=== PATIENT | female | born 1975 | race Caucasian/White ===

== ENCOUNTER 2016-09-26 13:08 | Emergency (ER) | payer MEDICAID, SELFPAY ==
[2016-09-26] MEDS ORDERED: Clindamycin 150 MG CAP ONE (14:19)
--- NOTE | 2016-09-26 14:29 | RAD ---
PA AND LATERAL CHEST: History: Dyspnea. FINDINGS: The heart size is borderline. The lungs are expanded without focal areas of consolidation, pneumotho rax, jeanette pulmonary edema or pleural effusions. IMPRESSION: No acute process. POS: [facility]
== END 2016-09-26 14:25 | disposition home or self-care (01) ==
LOC: MADERS 13:08
DX: J20.9 Acute bronchitis, unspecified (principal); E11.9 Type 2 diabetes mellitus without complications; I10 Essential (primary) hypertension; J45.909 Unspecified asthma, uncomplicated; E66.9 Obesity, unspecified; E24.9 Cushing's syndrome, unspecified; Z79.84 Long term (current) use of oral hypoglycemic drugs; Z79.899 Other long term (current) drug therapy
CPT/HCPCS: 36416; 71020

== ENCOUNTER 2016-10-20 16:52 | Outpatient (CLI) | payer MEDICAID, SELFPAY ==
--- NOTE | 2016-10-20 19:39 | RAD ---
LEFT HIP RADIOGRAPHS TWO VIEWS 10/20/16 PROVIDED CLINICAL HISTORY: Left hip pain. FINDINGS: Evaluation is limited by patient body habitus and patient positioning. There is no evidence for disp laced fracture. Left hip joint space appears preserved. Alignment appears anatomic. IMPRESSION: Limited study without evidence for an acute osseous abnormality or significant arthropathy. POS: [facility]
--- NOTE | 2016-10-20 19:41 | RAD ---
TWO VIEWS OF THE RIGHT HIP 10/20/16 PROVIDED CLINICAL HISTORY: Right hip pain. FINDINGS: Evaluation is limited by patient body habitus. There is no evidence for displaced fracture. Right hi p joint space appears preserved. Alignment appears anatomic. IMPRESSION: Limited exam without evidence for an acute osseous abnormality or significant arthropathy. POS: [facility]
--- NOTE | 2016-10-20 20:08 | RAD ---
LUMBAR SPINE RADIOGRAPHS THREE VIEWS 10/20/16 PROVIDED CLINICAL HISTORY: Back pain. FINDINGS: Evaluation is limited by patient body habitus. Five nonribbearing lumbar type vertebral bodies are n oted. Lumbar alignment appears normal. Vertebral body heights appear preserved. Lower lumbar facet d egenerative changes are seen. Intervertebral disc space heights appear preserved. IMPRESSION: Lower lumbar spine facet arthritis. POS: [facility]
== END 2016-10-20 16:53 | disposition home or self-care (01) ==
LOC: MADEKG 16:52
PROVIDERS: ATTEND Family Medicine
DX: M54.42 Lumbago with sciatica, left side (principal); M47.816 Spondylosis without myelopathy or radiculopathy, lumbar region
CPT/HCPCS: 72100

== ENCOUNTER 2017-07-02 22:14 | Emergency (ER) | payer MEDICAID ==
[2017-07-02] MEDS ORDERED: diphenhydrAMINE 25 MG CAP ONE (22:44)
[2017-07-02] MEDS ORDERED: HYDROcodone/Acetaminophen 10/325 mg Tablet ONE (22:44)
[2017-07-02 22:46] LABS: Bilirubin Negative (Negative); Blood, Urine Negative (Negative); Glucose, Urine (Dipstick) Negative (Negative); Leukocyte Trace (Negative); Nitrite Negative (Negative); Protein, Urine (Dipstick) Negative (Neg-Trace); Urobilinogen 0.2 mg/dL (0.2-1.0); pH, Urine 5.5 (5.0-9.0)
[2017-07-02 22:55] LABS: Clarity Hazy (Clear); RBC/HPF 0-3 HPF (0-3); Specific Gravity, Urine 1.005 (1.005-1.030)
[2017-07-02 22:56] LABS: Bacteria/HPF 2+ HPF (None Seen); WBC/HPF 21-50 HPF (0-3)
[2017-07-02] MEDS ORDERED: Ciprofloxacin 500 MG TAB ONE (23:17)
[2017-07-02] MEDS ORDERED: Phenazopyridine HCl 97.5 MG TABLET ONE (23:17)
== END 2017-07-02 23:25 | disposition home or self-care (01) ==
LOC: MADERS 22:14
DX: N39.0 Urinary tract infection, site not specified (principal); E11.9 Type 2 diabetes mellitus without complications; E03.9 Hypothyroidism, unspecified; I10 Essential (primary) hypertension; J45.909 Unspecified asthma, uncomplicated; E66.9 Obesity, unspecified; F31.9 Bipolar disorder, unspecified; Z79.84 Long term (current) use of oral hypoglycemic drugs; Z79.899 Other long term (current) drug therapy
CPT/HCPCS: 81001; 87086; 99283

== ENCOUNTER 2017-11-21 21:41 | Emergency (ER) | payer OTHER ==
[2017-11-21] MEDS ORDERED: Lorazepam 2 MG/ML VIAL ONE (22:00)
== END 2017-11-21 23:54 | disposition home or self-care (01) ==
LOC: MADERS 21:41
DX: F41.9 Anxiety disorder, unspecified (principal); I10 Essential (primary) hypertension; E11.9 Type 2 diabetes mellitus without complications; J45.909 Unspecified asthma, uncomplicated; E66.9 Obesity, unspecified; F31.9 Bipolar disorder, unspecified; Z79.899 Other long term (current) drug therapy; Z79.84 Long term (current) use of oral hypoglycemic drugs
CPT/HCPCS: 93005; 96372; J2060

== ENCOUNTER 2017-12-09 15:40 | Emergency (ER) | payer OTHER ==
[2017-12-09 16:54] LABS: #Basophils 0.1 thou/uL (0.0-0.2); #Eosinphils 0.3 thou/uL (0.0-0.7); #Lymphocytes 1.6 thou/uL (1.20-3.40); #Monocytes 0.5 thou/uL (0.11-0.59); #Neutrophils 6.2 thou/uL (1.40-6.50); %Basophils 0.8 % (0.0-1.0); %Eosinophils 3.2 % (0.0-10.0); %Lymphocytes 18.4 % (21.0-51.0); %Monocytes 5.6 % (0.0-10.0); Hemoglobin 13.6 g/dL (12.0-16.0); Mean Corpuscular HGB CONC 30.6 g/dL (32.0-36.0); Mean Corpuscular Volume 91.5 fL (78.0-98.0); Mean Platelet Volume 10.9 fL (7.4-10.4); Platelet Count 222 thou/uL (130-400); Red Blood Cell (RBC) Count 4.87 mill/uL (4.20-5.40); White Blood Cell (WBC) Count 8.6 thou/uL (4.8-10.8)
[2017-12-09 17:00] LABS: ALT (SGPT) 18 U/L (8-55); AST (SGOT) 16 U/L (5-34); Albumin 4.4 g/dL (3.5-5.0); Alkaline Phosphatase 94 U/L (40-150); Anion Gap 15 mmol/L (10-20); BUN (Urea Nitrogen) 14 mg/dL (7.0-18.7); Bilirubin, Total 0.3 mg/dL (0.2-1.2); Calc. Creatinine Clearance 0 mL/min (70-130); Calcium 9.9 mg/dL (7.8-10.44); Carbon Dioxide 29 mmol/L (22-29); Chloride 100 mmol/L (98-107); Estimated GFR-MDRD 83; Globulin 3.9 g/dL (2.4-3.5); Glucose 82 mg/dL (70-105); Lipase 18 U/L (8-78); Potassium 4.4 mmol/L (3.5-5.1); Protein, Total 8.3 g/dL (6.0-8.3); Sodium 140 mmol/L (136-145)
[2017-12-09] MEDS ORDERED: Metoclopramide HCl 10 MG/2 ML VIAL ONE (17:07)
--- NOTE | 2017-12-09 17:12 | RAD ---
PORTABLE CHEST: Date: 12/09/17 HISTORY: Injury. Chest pain. COMPARISON: 09/26/16. FINDINGS: Exam is degraded due to soft tissue attenuation. The lungs appear clear. Heart size upper normal and stable. Visualized bony thorax appears intact. IMPRESSION: No acute finding or interval change noted. POS: [facility]
[2017-12-09 17:42] LABS: BHCG - Serum Negative (NEGATIVE); Pregs Control Background? CLEAR/WHITE (CLR/WHITE); Pregs Control Bar Appear? YES (CONTROL BAR)
[2017-12-09] MEDS ORDERED: Fentanyl 100 MCG/2 ML VIAL ONE (18:12)
== END 2017-12-09 18:51 | disposition home or self-care (01) ==
LOC: MADERS 15:40
DX: B34.9 Viral infection, unspecified (principal); E11.9 Type 2 diabetes mellitus without complications; I10 Essential (primary) hypertension; J45.909 Unspecified asthma, uncomplicated; F31.9 Bipolar disorder, unspecified; Z79.899 Other long term (current) drug therapy
CPT/HCPCS: 71045; 80053; 83690; 84703; 85025; 87804; 93005; 96374; 96375; J2765; J3010

== ENCOUNTER 2018-01-11 08:08 | Emergency (ER) | payer OTHER ==
[2018-01-11] MEDS ORDERED: HYDROcodone/Acetaminophen 10/325 mg Tablet ONE (08:24)
--- NOTE | 2018-01-11 09:10 | RAD ---
THREE VIEWS LEFT FOOT: INDICATION: Injury, pain. FINDINGS: The digits are held in flexion which does limit evaluation. Limited evaluation of the Lisfranc joint due to positioning of the images. There is prominent soft tissue swelling. There is mild enthesoph yte formation of the calcaneus. Scattered osteophytes are seen. IMPRESSION: 1. No acute osseous abnormality of the left foot. There is limited evaluation on the basis of align ment. If there is high clinical suspicion, recommend short-term followup for continued assessment. 2. Soft tissue prominence. Correlate clinically. POS: [facility]
== END 2018-01-11 09:10 | disposition home or self-care (01) ==
LOC: MADERS 08:08
DX: S90.32XA Contusion of left foot, initial encounter (principal); E11.9 Type 2 diabetes mellitus without complications; I10 Essential (primary) hypertension; E66.9 Obesity, unspecified; J45.909 Unspecified asthma, uncomplicated; F31.9 Bipolar disorder, unspecified; Z79.899 Other long term (current) drug therapy; W55.12XA Struck by horse, initial encounter

== ENCOUNTER 2018-02-02 16:07 | Emergency (ER) | payer OTHER ==
[2018-02-02] MEDS ORDERED: predniSONE 20 MG TAB ONE (17:23)
--- NOTE | 2018-02-02 18:34 | RAD ---
CHEST TWO VIEW: 02/02/18 HISTORY: Cough. Hypertension. COMPARISON: Chest radiograph 12/09/17. FINDINGS: Pulmonary arteries are dilated. Lungs are without focal confluent air space consolidation or pneumoth orax or effusion. Mild pulmonary venous congestion. IMPRESSION: 1. Mild pulmonary venous congestion. 2. Dilated pulmonary arteries suggesting pulmonary arterial hypertension. POS: [facility]
== END 2018-02-02 18:05 | disposition home or self-care (01) ==
LOC: MADERS 16:07
DX: J20.9 Acute bronchitis, unspecified (principal); E11.9 Type 2 diabetes mellitus without complications; I10 Essential (primary) hypertension; E66.9 Obesity, unspecified; J45.909 Unspecified asthma, uncomplicated; F31.9 Bipolar disorder, unspecified
CPT/HCPCS: 71046; 93005; 94640; J7506; J7620

== ENCOUNTER 2018-02-22 19:53 | Emergency (ER) | payer OTHER ==
[~2018-02-22 19:53] MED LIST: Iopamidol 370 76% 100 ML VIAL ONE
[2018-02-22] MEDS ORDERED: Sodium Chloride 0.9% 1,000 ML ONE (20:23)
[2018-02-22] MEDS ORDERED: Morphine 4 MG/ML VIAL ONE (20:23)
[2018-02-22] MEDS ORDERED: Ondansetron PF 4 MG/2 ML Vial ONE (20:23)
[2018-02-22 20:56] LABS: #Basophils 0.1 thou/uL (0.0-0.2); #Eosinphils 0.3 thou/uL (0.0-0.7); #Lymphocytes 1.6 thou/uL (1.20-3.40); #Monocytes 0.4 thou/uL (0.11-0.59); %Basophils 0.7 % (0.0-1.0); %Lymphocytes 16.6 % (21.0-51.0); %Monocytes 4.4 % (0.0-10.0); %Neutrophils 75.4 % (42.0-75.0); Hemoglobin 13.1 g/dL (12.0-16.0); Mean Corpuscular HGB CONC 30.2 g/dL (32.0-36.0); Mean Corpuscular Hemoglobin 27.3 pg (27.0-31.0); Mean Corpuscular Volume 90.4 fL (78.0-98.0); Mean Platelet Volume 10.1 fL (7.4-10.4); Platelet Count 223 thou/uL (130-400); RBC Distribution Width 14.9 % (11.5-14.5); Red Blood Cell (RBC) Count 4.78 mill/uL (4.20-5.40); White Blood Cell (WBC) Count 9.3 thou/uL (4.8-10.8)
[2018-02-22 21:18] LABS: ALT (SGPT) 15 U/L (8-55); AST (SGOT) 20 U/L (5-34); Albumin 4.2 g/dL (3.5-5.0); Alkaline Phosphatase 85 U/L (40-150); Anion Gap 19 mmol/L (10-20); BUN (Urea Nitrogen) 22 mg/dL (7.0-18.7); Bilirubin, Total 0.2 mg/dL (0.2-1.2); Calc. Creatinine Clearance 0 mL/min (70-130); Calcium 9.6 mg/dL (7.8-10.44); Carbon Dioxide 24 mmol/L (22-29); Chloride 102 mmol/L (98-107); Estimated GFR-MDRD 72; Globulin 3.9 g/dL (2.4-3.5); Glucose 123 mg/dL (70-105); Lipase 23 U/L (8-78); Potassium 4.2 mmol/L (3.5-5.1); Protein, Total 8.1 g/dL (6.0-8.3); Sodium 141 mmol/L (136-145)
--- NOTE | 2018-02-22 22:04 | CT ---
CT ABDOMEN AND PELVIS WITH IV CONTRAST: 02/22/18 PROVIDED CLINICAL HISTORY: Abdominal pain. FINDINGS: No comparisons. The visualized lung bases are free of significant opacity. The liver, spleen, pancreas, kidneys, and adrenal glands demonstrate an unremarkable CT appearance. There is no bowel dilatation, inflammatory fat stranding, free fluid or free air apparent. Postoperat ramón changes are noted associated with the anterior abdominal wall inferiorly. The osseous structures demonstrate no concerning lytic or blastic lesions. IMPRESSION: No evidence for an acute process. POS: [facility]
== END 2018-02-22 21:40 | disposition home or self-care (01) ==
LOC: MADERS 19:53
DX: R10.9 Unspecified abdominal pain (principal); E11.9 Type 2 diabetes mellitus without complications; I10 Essential (primary) hypertension; E66.9 Obesity, unspecified; J45.909 Unspecified asthma, uncomplicated; F31.9 Bipolar disorder, unspecified; Z79.899 Other long term (current) drug therapy; Z79.51 Long term (current) use of inhaled steroids
CPT/HCPCS: 74177; 83690; 85025; 96361; 96374; 96375; J2270; J2405; J7050

== ENCOUNTER 2018-03-01 11:47 | Emergency (ER) | payer OTHER ==
[~2018-03-01 11:47] MED LIST changes: +Donnatal Elixir 16.2 MG/5 ML UDCUP ONE; -Iopamidol 370 76% 100 ML VIAL ONE
[2018-03-01 12:32] LABS: #Basophils 0.1 thou/uL (0.0-0.2); #Eosinphils 0.2 thou/uL (0.0-0.7); #Lymphocytes 1.2 thou/uL (1.20-3.40); #Monocytes 0.5 thou/uL (0.11-0.59); %Basophils 0.9 % (0.0-1.0); %Eosinophils 2.4 % (0.0-10.0); %Lymphocytes 15.3 % (21.0-51.0); %Monocytes 6.1 % (0.0-10.0); %Neutrophils 75.3 % (42.0-75.0); Mean Corpuscular HGB CONC 30.9 g/dL (32.0-36.0); Mean Corpuscular Hemoglobin 28.3 pg (27.0-31.0); Mean Corpuscular Volume 91.6 fL (78.0-98.0); Mean Platelet Volume 9.4 fL (7.4-10.4); Platelet Count 179 thou/uL (130-400); Red Blood Cell (RBC) Count 4.58 mill/uL (4.20-5.40); White Blood Cell (WBC) Count 7.9 thou/uL (4.8-10.8)
[2018-03-01 12:47] LABS: ALT (SGPT) 18 U/L (8-55); AST (SGOT) 22 U/L (5-34); Albumin 4.2 g/dL (3.5-5.0); Alkaline Phosphatase 82 U/L (40-150); Anion Gap 14 mmol/L (10-20); BUN (Urea Nitrogen) 20 mg/dL (7.0-18.7); Bilirubin, Total 0.3 mg/dL (0.2-1.2); Calc. Creatinine Clearance 0 mL/min (70-130); Calcium 9.4 mg/dL (7.8-10.44); Carbon Dioxide 28 mmol/L (22-29); Chloride 101 mmol/L (98-107); Estimated GFR-MDRD 83; Globulin 3.3 g/dL (2.4-3.5); Glucose 102 mg/dL (70-105); Lipase 22 U/L (8-78); Potassium 4.1 mmol/L (3.5-5.1); Protein, Total 7.5 g/dL (6.0-8.3); Sodium 139 mmol/L (136-145)
[2018-03-01 12:49] LABS: Bilirubin Negative (Negative); Blood, Urine Negative (Negative); Clarity Clear (Clear); Glucose, Urine (Dipstick) Negative (Negative); Leukocyte Negative (Negative); Nitrite Negative (Negative); Protein, Urine (Dipstick) Negative (Neg-Trace); Urobilinogen 0.2 mg/dL (0.2-1.0)
[2018-03-01] MEDS ORDERED: Donnatal Elixir 16.2 MG/5 ML UDCUP ONE (12:57)
[2018-03-01] MEDS ORDERED: Lidocaine Viscous Sol 2% 15 ml UD Cup ONE (12:58)
[2018-03-01] MEDS ORDERED: Mag-Al Plus 1200 MG/1200 MG/120 MG/30 ML UDCUP ONE (12:58)
[2018-03-01] MEDS ORDERED: Prochlorperazine 10 MG/2 ML VIAL ONE (12:59)
--- NOTE | 2018-03-01 13:46 | RAD ---
ONE VIEW CHEST TWO VIEWS ABDOMEN: History: Pain. Comparison: None. FINDINGS: CHEST ONE VIEW: Normal cardiac silhouette. The pulmonary vessels and hilum are normal. Costophrenic angles are clear. No masses or consolidation or pneumothorax. No acute osseous abnormality. There is a mild S-shaped s coliotic curvature of the thoracic and lumbar spine. The thoracic spine has a rightward curvature. Gabriella mbar spine has a leftward curvature. ABDOMEN TWO VIEWS: Nonspecific bowel gas pattern. No suspicious densities in the abdomen or pelvis. There is evidence of previous hernia repair in the pelvis. No differential air fluid levels. No pneumoperitoneum. IMPRESSION: 1. No acute cardiopulmonary process. 2. Nonspecific bowel gas pattern. POS: [facility]
== END 2018-03-01 13:52 | disposition home or self-care (01) ==
LOC: MADERS 11:47
DX: K21.9 Gastro-esophageal reflux disease without esophagitis (principal); R10.83 Colic; E11.9 Type 2 diabetes mellitus without complications; I10 Essential (primary) hypertension; E66.9 Obesity, unspecified; J45.909 Unspecified asthma, uncomplicated; Z79.899 Other long term (current) drug therapy; Z79.84 Long term (current) use of oral hypoglycemic drugs; Z79.51 Long term (current) use of inhaled steroids
CPT/HCPCS: 36415; 74022; 80053; 81003; 83605; 83690; 85025; 93005; 96372; J0780

== ENCOUNTER 2018-03-27 20:28 | Emergency (ER) | payer OTHER ==
[2018-03-27] MEDS ORDERED: Ketorolac Tromethamine 60 MG/2 ML VIAL ONE (20:59)
--- NOTE | 2018-03-27 21:54 | RAD ---
RIGHT FEMUR TWO VIEWS: HISTORY: Fall. FINDINGS: There are moderate arthritic changes of the knee, and there appears to be some joint effusion present . I do not see any signs of fracture. IMPRESSION: No evidence of fracture. POS: [facility]
--- NOTE | 2018-03-27 22:32 | RAD ---
RIGHT HIP TWO VIEWS: HISTORY: Right hip injury. FINDINGS: I do not see any signs of fracture or dislocation. IMPRESSION: Negative right hip. POS: [facility]
--- NOTE | 2018-03-27 22:33 | RAD ---
RIGHT TIBIA AND FIBULA TWO VIEWS: HISTORY: Ground level fall with tibia and fibula pain. FINDINGS: There is a joint effusion present and some moderate arthritic changes of the knee. I do not see any signs of fracture or dislocation. IMPRESSION: Marked arthritic changes of the knee with moderate joint effusion. No acute injury. POS: [facility]
--- NOTE | 2018-03-27 22:34 | RAD ---
RIGHT KNEE FOUR VIEWS: HISTORY: Knee injury. FINDINGS: There are marked arthritic changes of the knee. There is severe medial compartment narrowing. There is also prominent spur formation of the patellofemoral and lateral compartments. There is a moderat e joint effusion, but I do not see any definite signs of a fracture. IMPRESSION: Severe arthritic changes of the knee with moderate joint effusion. POS: [facility]
== END 2018-03-27 22:40 | disposition home or self-care (01) ==
LOC: MADERS 20:28
DX: S83.91XA Sprain of unspecified site of right knee, initial encounter (principal); S73.101A Unspecified sprain of right hip, initial encounter; S80.11XA Contusion of right lower leg, initial encounter; S70.11XA Contusion of right thigh, initial encounter; E66.9 Obesity, unspecified; I10 Essential (primary) hypertension; J45.909 Unspecified asthma, uncomplicated; F31.9 Bipolar disorder, unspecified; E11.9 Type 2 diabetes mellitus without complications; Z79.899 Other long term (current) drug therapy; W18.30XA Fall on same level, unspecified, initial encounter
CPT/HCPCS: 96372; J1885

== ENCOUNTER 2018-06-02 15:49 | Emergency (ER) | payer OTHER ==
[2018-06-02] MEDS ORDERED: predniSONE 20 MG TAB ONE (16:43)
--- NOTE | 2018-06-02 16:47 | RAD ---
EXAM: Two views chest PROVIDED CLINICAL HISTORY: Cough COMPARISON: 04/22/2018 FINDINGS: Cardiac silhouette is magnified by projection but overall stable in size. Pulmonary vasculature is wi thin normal limits for the portable technique. The lungs are clear. The osseous structures have a normal appearance. IMPRESSION: No acute cardiopulmonary process.
--- NOTE | 2018-06-02 18:23 | CT ---
CT BRAIN: 06/02/18 HISTORY: Right sided paresthesia. Noncontrast enhanced CT images of the brain obtained. The brain is unremarkable. No evidence of intr acranial masses, hemorrhages, strokes, or contusions seen. Ventricles are of normal size. IMPRESSION: Normal CT brain. POS: [facility]
== END 2018-06-02 18:23 | disposition home or self-care (01) ==
LOC: MADERS 15:49
DX: J45.909 Unspecified asthma, uncomplicated (principal); R20.2 Paresthesia of skin; E11.9 Type 2 diabetes mellitus without complications; I10 Essential (primary) hypertension; E66.9 Obesity, unspecified; F31.9 Bipolar disorder, unspecified; Z79.51 Long term (current) use of inhaled steroids; Z79.899 Other long term (current) drug therapy
CPT/HCPCS: 70450; 71046; 94640; J7512; J7620

== ENCOUNTER 2018-07-10 14:21 | Emergency (ER) | payer OTHER ==
--- NOTE | 2018-07-10 15:20 | RAD ---
PA AND LATERAL VIEWS CHEST: HISTORY: Cough. FINDINGS: Comparison is made with the exam of 06/21/2018. The heart size is normal. The lungs are expanded without focal areas of consolidation, pneumothorace s, or pleural effusions. No acute osseous abnormalities are seen. IMPRESSION: No acute process. POS: [facility]
[2018-07-10] MEDS ORDERED: Dexamethasone 4 MG TAB ONE (15:38)
== END 2018-07-10 15:41 | disposition home or self-care (01) ==
LOC: MADERS 14:21
DX: J20.9 Acute bronchitis, unspecified (principal); E11.9 Type 2 diabetes mellitus without complications; I10 Essential (primary) hypertension; E66.9 Obesity, unspecified; J45.909 Unspecified asthma, uncomplicated; F31.9 Bipolar disorder, unspecified; Z79.899 Other long term (current) drug therapy; Z79.51 Long term (current) use of inhaled steroids
CPT/HCPCS: 71046; J8540

== ENCOUNTER 2018-08-04 20:42 | Emergency (ER) | payer OTHER ==
[2018-08-04] MEDS ORDERED: predniSONE 20 MG TAB ONE (21:04)
--- NOTE | 2018-08-04 21:27 | RAD ---
XR Chest Pa Lat STANDARD History: Cough Comparison: Radiograph July 10, 2018 Findings: Heart size mildly enlarged. Pulmonary arteries are dilated. Mild dextro scoliosis. No pneumothorax or significant effusion no acute osseous abnormality. Impression: 1. Mild cardiomegaly. 2. Dilated pulmonary arteries suggesting pulmonary arterial hypertension.
== END 2018-08-04 22:29 | disposition home or self-care (01) ==
LOC: MADERS 20:42
DX: J20.9 Acute bronchitis, unspecified (principal); E11.9 Type 2 diabetes mellitus without complications; I10 Essential (primary) hypertension; E66.9 Obesity, unspecified; J45.909 Unspecified asthma, uncomplicated; G47.30 Sleep apnea, unspecified; F31.9 Bipolar disorder, unspecified; Z79.51 Long term (current) use of inhaled steroids; Z79.899 Other long term (current) drug therapy
CPT/HCPCS: 71046; J7512; J7620

== ENCOUNTER 2018-09-07 13:19 | Emergency (ER) | payer OTHER | END 2018-09-07 13:45 | disposition home or self-care (01) | LOC: MADERS 13:19 | DX: J20.9 Acute bronchitis, unspecified (principal); Z79.51 Long term (current) use of inhaled steroids; Z79.899 Other long term (current) drug therapy | CPT/HCPCS: 99282 ==

== ENCOUNTER 2018-09-20 23:08 | Emergency (ER) | payer OTHER ==
--- NOTE | 2018-09-20 23:36 | RAD ---
2 views chest: 09/20/2018 COMPARISON: 08/04/2018 HISTORY: Difficulty breathing FINDINGS: Lungs are clear. Heart and mediastinal contours are grossly unremarkable. IMPRESSION: No acute findings.
== END 2018-09-20 23:47 | disposition home or self-care (01) ==
LOC: MADERS 23:08
DX: R07.89 Other chest pain (principal); I10 Essential (primary) hypertension; J45.909 Unspecified asthma, uncomplicated; Z79.899 Other long term (current) drug therapy; Z79.51 Long term (current) use of inhaled steroids
CPT/HCPCS: 71046

== ENCOUNTER 2018-09-29 14:09 | Emergency (ER) | payer OTHER | END 2018-09-29 15:00 | disposition home or self-care (01) | LOC: MADERS 14:09 | DX: T16.2XXA Foreign body in left ear, initial encounter (principal); I10 Essential (primary) hypertension; J45.909 Unspecified asthma, uncomplicated; F41.9 Anxiety disorder, unspecified; F32.9 Major depressive disorder, single episode, unspecified; Z79.51 Long term (current) use of inhaled steroids; Z79.899 Other long term (current) drug therapy | CPT/HCPCS: 69200 ==

== ENCOUNTER 2018-12-06 11:40 | Outpatient (CLI) | payer OTHER ==
[2018-12-06 12:22] LABS: #Eosinphils 0.1 thou/uL (0.0-0.7); #Lymphocytes 1.1 thou/uL (1.20-3.40); #Monocytes 0.3 thou/uL (0.11-0.59); #Neutrophils 3.8 thou/uL (1.40-6.50); %Basophils 0.7 % (0.0-1.0); %Eosinophils 2.7 % (0.0-10.0); %Lymphocytes 20.4 % (21.0-51.0); %Monocytes 5.9 % (0.0-10.0); %Neutrophils 70.4 % (42.0-75.0); Hemoglobin 12.1 g/dL (12.0-16.0); Mean Corpuscular HGB CONC 30.6 g/dL (32.0-36.0); Mean Corpuscular Hemoglobin 26.6 pg (27.0-31.0); Mean Platelet Volume 8.7 fL (7.4-10.4); Platelet Count 163 thou/uL (130-400); RBC Distribution Width 14.9 % (11.5-14.5); Red Blood Cell (RBC) Count 4.55 mill/uL (4.20-5.40); White Blood Cell (WBC) Count 5.4 thou/uL (4.8-10.8)
[2018-12-06 12:45] LABS: ALT (SGPT) 10 U/L (8-55); AST (SGOT) 13 U/L (5-34); Albumin 4.2 g/dL (3.5-5.0); Alkaline Phosphatase 82 U/L (40-110); Anion Gap 12 mmol/L (10-20); BUN (Urea Nitrogen) 9 mg/dL (7.0-18.7); Bilirubin, Total 0.3 mg/dL (0.2-1.2); Calc. Creatinine Clearance 0 mL/min (70-130); Calcium 9.3 mg/dL (7.8-10.44); Carbon Dioxide 29 mmol/L (22-29); Chloride 102 mmol/L (98-107); Estimated GFR-MDRD Greater than 90; Globulin 2.6 g/dL (2.4-3.5); Glucose 79 mg/dL (70-105); Potassium 4.1 mmol/L (3.5-5.1); Protein, Total 6.8 g/dL (6.0-8.3); Sodium 139 mmol/L (136-145)
--- NOTE | 2018-12-06 14:00 | RAD ---
2 VIEW CHEST: Date: 12/06/18 HISTORY: Preop. COMPARISON: 09/20/18. FINDINGS: Heart size upper normal. Vascularity and interstitial markings are upper normal, but stable, and some of this prominence is due to exposure factors. There is no infiltrate or acute process. IMPRESSION: No acute findings. POS: [facility]
[2018-12-06 18:13] LABS: Hemoglobin A1c 5.8 % (4.0-6.0)
== END 2018-12-06 11:41 | disposition home or self-care (01) ==
LOC: MADLABBHPM 11:40
PROVIDERS: ATTEND Family Medicine
DX: Z01.818 Encounter for other preprocedural examination (principal)
CPT/HCPCS: 71046; 80053; 83036; 84443; 85025; 86677

== ENCOUNTER → 2019-01-10 | Emergency (ER) | payer OTHER ==
[~2019-01-10] MED LIST changes: -Donnatal Elixir 16.2 MG/5 ML UDCUP ONE; +Ibuprofen 800 MG TAB ONE
--- NOTE | 2019-01-10 19:38 | RAD ---
RIGHT CLAVICLE 2 VIEWS: HISTORY: Injury, right clavicle pain FINDINGS: The right clavicle appears intact.
--- NOTE | 2019-01-10 19:46 | RAD ---
XR Shoulder Rt 3 View STANDARD HISTORY: Injury, right shoulder pain FINDINGS: No dislocation is identified. There is a questionable nondisplaced fracture involving the greater tub erosity.
== END ==
LOC: MADERS 18:27
DX: S49.91XA Unspecified injury of right shoulder and upper arm, initial encounter (principal); I10 Essential (primary) hypertension; W11.XXXA Fall on and from ladder, initial encounter

== ENCOUNTER 2019-03-17 21:37 | Emergency (ER) | payer OTHER ==
--- NOTE | 2019-03-17 22:15 | RAD ---
EXAM: Chest Two Views 03/17/2019 10:12 PM HISTORY: Cough COMPARISON: February 12, 2019 FINDINGS: Lungs: No acute airspace consolidation. Heart: Normal in size and contour. Pulmonary vessels: Normal. Costophrenic angles: Clear. Pneumothorax: None. Osseous structures:Intact. Stable thoracic scoliosis. Additional findings: None. IMPRESSION: No significant acute intrathoracic disease.
== END 2019-03-17 22:40 | disposition home or self-care (01) ==
LOC: MADERS 21:37
DX: R05 Cough (principal); R09.81 Nasal congestion; E78.5 Hyperlipidemia, unspecified; E78.00 Pure hypercholesterolemia, unspecified; I10 Essential (primary) hypertension; G47.30 Sleep apnea, unspecified; J45.909 Unspecified asthma, uncomplicated; E66.9 Obesity, unspecified; F31.9 Bipolar disorder, unspecified; F41.9 Anxiety disorder, unspecified
CPT/HCPCS: 71046; 87804

== ENCOUNTER 2019-07-15 14:44 | Emergency (ER) | payer OTHER ==
[2019-07-15 15:32] LABS: Bilirubin Negative (Negative); Blood, Urine Negative (Negative); Clarity Clear (Clear); Glucose, Urine (Dipstick) Negative (Negative); Leukocyte Negative (Negative); Nitrite Negative (Negative); Protein, Urine (Dipstick) Negative (Neg-Trace); Urobilinogen 0.2 mg/dL (Less than 2)
[2019-07-15 15:33] LABS: RBC/HPF 0-3 HPF (0-3); Squamous Epithelial 0-3 HPF (0-3); WBC/HPF 0-3 HPF (0-3)
[2019-07-15 15:34] LABS: Bacteria/HPF Rare-Few HPF (None Seen)
== END 2019-07-15 16:00 | disposition home or self-care (01) ==
LOC: MADERS 14:44
DX: R30.0 Dysuria (principal); R10.30 Lower abdominal pain, unspecified; M54.5 Low back pain; M54.2 Cervicalgia; H92.02 Otalgia, left ear; E78.5 Hyperlipidemia, unspecified; I10 Essential (primary) hypertension; E66.9 Obesity, unspecified; G47.30 Sleep apnea, unspecified; J45.909 Unspecified asthma, uncomplicated; F31.9 Bipolar disorder, unspecified; F41.9 Anxiety disorder, unspecified; Z79.899 Other long term (current) drug therapy
CPT/HCPCS: 81001; 99283

== ENCOUNTER 2019-08-08 19:48 | Emergency (ER) | payer OTHER | END 2019-08-08 20:15 | disposition home or self-care (01) | LOC: MADERS 19:48 | DX: R06.4 Hyperventilation (principal); E78.5 Hyperlipidemia, unspecified; E78.00 Pure hypercholesterolemia, unspecified; I10 Essential (primary) hypertension; E66.9 Obesity, unspecified; G47.30 Sleep apnea, unspecified; J45.909 Unspecified asthma, uncomplicated; F31.9 Bipolar disorder, unspecified; F41.9 Anxiety disorder, unspecified | CPT/HCPCS: 99281 ==

== ENCOUNTER 2019-08-20 13:48 | Emergency (ER) | payer OTHER ==
[2019-08-20] MEDS ORDERED: Clindamycin 150 MG CAP ONE (14:07)
== END 2019-08-20 14:17 | disposition home or self-care (01) ==
LOC: MADERS 13:48
DX: K04.7 Periapical abscess without sinus (principal); E78.5 Hyperlipidemia, unspecified; E78.00 Pure hypercholesterolemia, unspecified; I10 Essential (primary) hypertension; J45.909 Unspecified asthma, uncomplicated; F31.9 Bipolar disorder, unspecified; F41.9 Anxiety disorder, unspecified; K02.9 Dental caries, unspecified; Z79.899 Other long term (current) drug therapy
CPT/HCPCS: 99282

== ENCOUNTER 2019-09-02 14:23 | Emergency (ER) | payer OTHER ==
[2019-09-02] MEDS ORDERED: Ondansetron ODT 4 MG TAB ONE (14:48)
[2019-09-04 14:21] LABS: SARS-CoV-2 MS2 Positive; SARS-CoV-2 N Gene Negative; SARS-CoV-2 S Gene Negative; SARS-CoV-2 by NAA Not Detected (NotDetected); SARS-CoV-2 orf1ab Negative
== END 2019-09-02 14:55 | disposition home or self-care (01) ==
LOC: MADERS 14:23
DX: K52.9 Noninfective gastroenteritis and colitis, unspecified (principal); Z20.828 Contact with and (suspected) exposure to other viral communicable diseases; E78.5 Hyperlipidemia, unspecified; I10 Essential (primary) hypertension; F41.9 Anxiety disorder, unspecified; Z79.899 Other long term (current) drug therapy
CPT/HCPCS: 87635; 99284; Q0162; U0003

== ENCOUNTER 2019-10-12 13:12 | Emergency (ER) | payer OTHER ==
[2019-10-12 13:54] LABS: Bilirubin Negative (Negative); Blood, Urine Negative (Negative); Clarity Clear (Clear); Glucose, Urine (Dipstick) Negative (Negative); Ketone, Urine Negative (Negative); Leukocyte Negative (Negative); Nitrite Negative (Negative); Protein, Urine (Dipstick) Negative (Neg-Trace); Specific Gravity, Urine 1.025 (1.005-1.030); Urobilinogen 0.2 mg/dL (Less than 2); pH, Urine 5.5 (5.0-9.0)
[2019-10-12 13:57] LABS: Pregnancy Test - Urine (BHCG) Negative (Negative); Pregu Control Background? CLEAR/WHITE (CLR/WHITE); Pregu Control Bar Appear? YES (CONTROL BAR); Specific Gravity 1.025 (1.002-1.036)
--- NOTE | 2019-10-12 14:03 | RAD ---
EXAM: Chest 2 views: HISTORY: Cough and upper respiratory infection COMPARISON: 03/17/2019 FINDINGS: There is a normal-sized cardiomediastinal silhouette. There is no evidence of consolidation, mass, or pleural effusion. Degenerative changes and scoliotic curvature are seen in the spine. IMPRESSION: No evidence of acute cardiopulmonary disease
== END 2019-10-12 14:44 | disposition home or self-care (01) ==
LOC: MADERS 13:12
DX: J20.8 Acute bronchitis due to other specified organisms (principal); M54.5 Low back pain; E78.5 Hyperlipidemia, unspecified; I10 Essential (primary) hypertension; E66.9 Obesity, unspecified; J45.909 Unspecified asthma, uncomplicated; F31.9 Bipolar disorder, unspecified; F41.9 Anxiety disorder, unspecified; G47.30 Sleep apnea, unspecified; E78.00 Pure hypercholesterolemia, unspecified; Z79.899 Other long term (current) drug therapy; Z79.51 Long term (current) use of inhaled steroids
CPT/HCPCS: 71046; 81003; 81025

== ENCOUNTER 2019-10-31 22:19 | Emergency (ER) | payer OTHER ==
[2019-10-31 22:39] LABS: Bilirubin Negative (Negative); Blood, Urine Negative (Negative); Clarity Clear (Clear); Glucose, Urine (Dipstick) Negative (Negative); Ketone, Urine Negative (Negative); Leukocyte Negative (Negative); Nitrite Negative (Negative); Protein, Urine (Dipstick) Negative (Neg-Trace); Urobilinogen 0.2 mg/dL (Less than 2); pH, Urine 5.5 (5.0-9.0)
[2019-10-31 22:40] LABS: Specific Gravity, Urine 1.025 (1.002-1.036)
[2019-10-31 22:55] LABS: Pregnancy Test - Urine (BHCG) Negative (Negative); Pregu Control Background? CLEAR/WHITE (CLR/WHITE); Pregu Control Bar Appear? YES (CONTROL BAR); Specific Gravity 1.025 (1.002-1.036)
[2019-11-01 17:07] LABS: SARS-CoV-2 MS2 Positive; SARS-CoV-2 N Gene Negative; SARS-CoV-2 S Gene Negative; SARS-CoV-2 by NAA Not Detected (NotDetected); SARS-CoV-2 orf1ab Negative
== END 2019-10-31 23:00 | disposition home or self-care (01) ==
LOC: MADERS 22:19
DX: J20.9 Acute bronchitis, unspecified (principal); Z20.828 Contact with and (suspected) exposure to other viral communicable diseases; E66.01 Morbid (severe) obesity due to excess calories; R30.0 Dysuria; R35.0 Frequency of micturition; J45.909 Unspecified asthma, uncomplicated; E78.5 Hyperlipidemia, unspecified; E78.00 Pure hypercholesterolemia, unspecified; I10 Essential (primary) hypertension; G47.30 Sleep apnea, unspecified; F41.9 Anxiety disorder, unspecified; F31.9 Bipolar disorder, unspecified; Z79.01 Long term (current) use of anticoagulants; Z79.51 Long term (current) use of inhaled steroids; Z79.899 Other long term (current) drug therapy
CPT/HCPCS: 81003; 81025; 87086; 87635; 99283; U0003

== ENCOUNTER 2019-11-20 15:28 | Emergency (ER) | payer OTHER | END 2019-11-20 16:10 | disposition home or self-care (01) | LOC: MADERS 15:28 | DX: R05 Cough (principal); R50.9 Fever, unspecified; R11.2 Nausea with vomiting, unspecified; R19.7 Diarrhea, unspecified; Z20.828 Contact with and (suspected) exposure to other viral communicable diseases; J45.909 Unspecified asthma, uncomplicated; E78.5 Hyperlipidemia, unspecified; E78.00 Pure hypercholesterolemia, unspecified; I10 Essential (primary) hypertension; E66.9 Obesity, unspecified; G47.30 Sleep apnea, unspecified; F31.9 Bipolar disorder, unspecified; F41.9 Anxiety disorder, unspecified; Z79.899 Other long term (current) drug therapy | CPT/HCPCS: 99283 ==

== ENCOUNTER 2019-12-06 20:08 | Emergency (ER) | payer OTHER | END 2019-12-06 20:45 | disposition left against medical advice (07) | LOC: MADERS 20:08 | DX: Z53.21 Procedure and treatment not carried out due to patient leaving prior to being seen by health care provider (principal) ==

== ENCOUNTER 2019-12-07 07:52 | Emergency (ER) | payer OTHER ==
--- NOTE | 2019-12-07 10:09 | RAD ---
RIGHT KNEE 4 VIEWS: Date: 12/07/2019 INDICATION: Knee pain. FINDINGS: There are severe degenerative changes noted. There is loss of lateral joint space. Prominent marginal osteophytes are seen medially and laterally. Spurring from the tibial spines. Narrowing and spurring at the patellofemoral joint. Evidence of joint effusion in the suprapatellar region. IMPRESSION: Moderate to severe degenerative changes of right knee with loss of lateral joint space. Evidence of j oint effusion. POS: [facility]
--- NOTE | 2019-12-07 10:10 | RAD ---
LEFT KNEE 4 VIEWS: Date: 12/07/2019 HISTORY: Knee pain. Fall with injury to knee. FINDINGS: Severe degenerative changes. Loss of lateral joint space. Prominent marginal osteophytes seen mediall y and laterally. Prominent spurring and narrowing at the patellofemoral joint. Evidence of small join t effusion. IMPRESSION: Moderate to severe degenerative changes of the left knee with evidence of joint effusion. POS: [facility]
== END 2019-12-07 10:20 | disposition home or self-care (01) ==
LOC: MADERS 07:52
DX: S70.02XA Contusion of left hip, initial encounter (principal); M17.0 Bilateral primary osteoarthritis of knee; F31.9 Bipolar disorder, unspecified; Z79.899 Other long term (current) drug therapy; W17.89XA Other fall from one level to another, initial encounter

== ENCOUNTER 2020-01-14 11:35 | Emergency (ER) | payer OTHER | END 2020-01-14 12:25 | disposition home or self-care (01) | LOC: MADERS 11:35 | DX: R56.9 Unspecified convulsions (principal); J45.909 Unspecified asthma, uncomplicated; F31.9 Bipolar disorder, unspecified; Z79.899 Other long term (current) drug therapy | CPT/HCPCS: 36416; 99284 ==

== ENCOUNTER 2020-03-22 22:32 | Emergency (ER) | payer OTHER ==
[2020-03-22] MEDS ORDERED: Ketorolac Tromethamine 60 MG/2 ML VIAL ONE (23:29)
[2020-03-22] MEDS ORDERED: Acetaminophen 325 MG TAB ONE (23:29)
== END 2020-03-22 23:57 | disposition home or self-care (01) ==
LOC: MADERS 22:32
DX: K02.9 Dental caries, unspecified (principal); K08.89 Other specified disorders of teeth and supporting structures; J45.909 Unspecified asthma, uncomplicated; E66.9 Obesity, unspecified; Z79.899 Other long term (current) drug therapy
CPT/HCPCS: 96372; 99282; J1885

== ENCOUNTER 2020-04-13 13:52 | Emergency (ER) | payer OTHER ==
[2020-04-13] MEDS ORDERED: Bupivacaine HCl 0.5%/Epinephrine 1:200,000/PF 30 ml Vial ONE (14:26)
[2020-04-13] MEDS ORDERED: Clindamycin 150 MG CAP ONE (14:27)
== END 2020-04-13 14:44 | disposition home or self-care (01) ==
LOC: MADERS 13:52
DX: K03.81 Cracked tooth (principal); E66.9 Obesity, unspecified; Z79.899 Other long term (current) drug therapy
CPT/HCPCS: 64400

== ENCOUNTER 2020-05-21 18:38 | Emergency (ER) | payer OTHER ==
[2020-05-21] MEDS ORDERED: Boostrix 0.5 ML (Tdap) VIAL ONE (18:54)
[2020-05-21] MEDS ORDERED: Acetaminophen 500 MG TAB ONE (19:06)
[2020-05-21] MEDS ORDERED: Ibuprofen 800 MG TAB ONE (19:06)
== END 2020-05-21 19:14 | disposition home or self-care (01) ==
LOC: MADERS 18:38
DX: S01.01XA Laceration without foreign body of scalp, initial encounter (principal); J45.909 Unspecified asthma, uncomplicated; E66.9 Obesity, unspecified; W20.8XXA Other cause of strike by thrown, projected or falling object, initial encounter
CPT/HCPCS: 12001; 90471; 90715

== ENCOUNTER 2020-06-14 16:57 | Emergency (ER) | payer OTHER | END 2020-06-14 18:26 | disposition home or self-care (01) | LOC: MADERS 16:57 | DX: J02.9 Acute pharyngitis, unspecified (principal); R51.9 Headache, unspecified; R05 Cough; J45.909 Unspecified asthma, uncomplicated; E66.9 Obesity, unspecified; Z79.899 Other long term (current) drug therapy; Z79.01 Long term (current) use of anticoagulants | CPT/HCPCS: 71046 ==

== ENCOUNTER 2020-07-03 20:19 | Emergency (ER) | payer OTHER | END 2020-07-03 20:53 | disposition home or self-care (01) | LOC: MADERS 20:19 | DX: J30.2 Other seasonal allergic rhinitis (principal); R07.89 Other chest pain; Z79.899 Other long term (current) drug therapy | CPT/HCPCS: 99284 ==

== ENCOUNTER 2020-07-07 21:26 | Emergency (ER) | payer OTHER | END 2020-07-07 21:56 | disposition home or self-care (01) | LOC: MADERS 21:26 | DX: M25.561 Pain in right knee (principal); E66.9 Obesity, unspecified; J45.909 Unspecified asthma, uncomplicated; Z79.51 Long term (current) use of inhaled steroids; Z79.899 Other long term (current) drug therapy | CPT/HCPCS: 99281 ==

== ENCOUNTER 2020-07-07 22:11 | Outpatient (CLI) | payer OTHER | END 2020-07-07 22:12 | disposition home or self-care (01) | LOC: MADRAD 22:11 | PROVIDERS: ATTEND Family Medicine | DX: M94.0 Chondrocostal junction syndrome [Tietze] (principal); M17.11 Unilateral primary osteoarthritis, right knee ==

== ENCOUNTER 2020-07-12 09:00 | Emergency (ER) | payer OTHER ==
[2020-07-12] MEDS ORDERED: Ketorolac Tromethamine 60 MG/2 ML VIAL ONE (09:34)
[2020-07-12] MEDS ORDERED: Fentanyl 100 MCG/2 ML VIAL ONE (11:02)
== END 2020-07-12 11:52 | disposition short-term general hospital (02) ==
LOC: MADERS 09:00
DX: S83.91XA Sprain of unspecified site of right knee, initial encounter (principal); S79.911A Unspecified injury of right hip, initial encounter; W19.XXXA Unspecified fall, initial encounter
CPT/HCPCS: 72192; 96372; J1885; J3010

== ENCOUNTER 2020-09-11 10:47 | Emergency (ER) | payer OTHER ==
[~2020-09-11 10:47] MED LIST changes: -Ibuprofen 800 MG TAB ONE; +Sodium Chloride 0.9% 1,000 ML BAG ONE
[2020-09-11] MEDS ORDERED: Ketorolac Tromethamine 30 MG/ML VIAL ONE (13:03)
[2020-09-11] MEDS ORDERED: diphenhydrAMINE 50 MG/ML VIAL ONE (13:03)
[2020-09-11] MEDS ORDERED: Metoclopramide HCl 10 MG/2 ML VIAL ONE (13:03)
== END 2020-09-11 14:46 | disposition home or self-care (01) ==
LOC: MADERS 10:47
DX: R51.9 Headache, unspecified (principal); F17.210 Nicotine dependence, cigarettes, uncomplicated; I10 Essential (primary) hypertension
CPT/HCPCS: 96365; 96375; J1200; J1885; J2765; J7050

== ENCOUNTER 2020-09-28 12:02 | Emergency (ER) | payer OTHER ==
[2020-09-28] MEDS ORDERED: Sodium Chloride 0.9% 1,000 ML ONE (12:45)
[2020-09-28] MEDS ORDERED: levETIRAcetam 500 MG/100 ML PREMIX BAG ONE (12:45)
[2020-09-28 12:52] LABS: #Basophils 0.1 thou/uL (0.0-0.2); #Eosinphils 0.3 thou/uL (0.0-0.7); #Lymphocytes 1.6 thou/uL (1.20-3.40); #Monocytes 0.4 thou/uL (0.11-0.59); %Basophils 1.3 % (0.0-1.0); %Eosinophils 4.2 % (0.0-10.0); %Lymphocytes 24.8 % (21.0-51.0); %Monocytes 5.7 % (0.0-10.0); Hemoglobin 13.2 g/dL (12.0-16.0); Mean Corpuscular HGB CONC 31.4 g/dL (32.0-36.0); Mean Corpuscular Hemoglobin 29.8 pg (27.0-31.0); Mean Platelet Volume 10.5 fL (7.4-10.4); Platelet Count 181 thou/uL (130-400); RBC Distribution Width 12.6 % (11.5-14.5); Red Blood Cell (RBC) Count 4.44 mill/uL (4.20-5.40); White Blood Cell (WBC) Count 6.3 thou/uL (4.8-10.8)
[2020-09-28 12:57] LABS: BHCG - Serum Negative (NEGATIVE); Pregs Control Background? CLEAR/WHITE (CLR/WHITE); Pregs Control Bar Appear? YES (CONTROL BAR)
[2020-09-28 13:06] LABS: ALT (SGPT) 15 U/L (8-55); AST (SGOT) 15 U/L (5-34); Albumin 3.6 g/dL (3.5-5.0); Alkaline Phosphatase 97 U/L (40-110); Anion Gap 14 mmol/L (10-20); BUN (Urea Nitrogen) 11 mg/dL (7.0-18.7); Bilirubin, Total 0.2 mg/dL (0.2-1.2); Calc. Creatinine Clearance 0 mL/min (70-130); Calcium 9.1 mg/dL (7.8-10.44); Carbon Dioxide 27 mmol/L (22-29); Chloride 104 mmol/L (98-107); Globulin 3.2 g/dL (2.4-3.5); Glucose 80 mg/dL (70-105); Potassium 4.2 mmol/L (3.5-5.1); Protein, Total 6.8 g/dL (6.0-8.3); Sodium 141 mmol/L (136-145)
== END 2020-09-28 15:50 | disposition home or self-care (01) ==
LOC: MADERS 12:02
DX: R56.9 Unspecified convulsions (principal); J30.2 Other seasonal allergic rhinitis; I10 Essential (primary) hypertension; F17.210 Nicotine dependence, cigarettes, uncomplicated; E66.9 Obesity, unspecified
CPT/HCPCS: 80053; 83605; 84443; 84703; 85025; 96365; J1953; J7050

== ENCOUNTER 2020-10-17 11:25 | Emergency (ER) | payer OTHER ==
[2020-10-17] MEDS ORDERED: Acetaminophen 500 MG TAB ONE (12:39)
== END 2020-10-17 12:43 | disposition home or self-care (01) ==
LOC: MADERS 11:25
DX: U07.1 COVID-19 (principal); E11.9 Type 2 diabetes mellitus without complications; E78.5 Hyperlipidemia, unspecified; E78.00 Pure hypercholesterolemia, unspecified; I10 Essential (primary) hypertension; I25.2 Old myocardial infarction; F17.210 Nicotine dependence, cigarettes, uncomplicated
CPT/HCPCS: 99283

== ENCOUNTER 2020-12-08 19:21 | Outpatient (CLI) | payer OTHER | END 2020-12-08 19:22 | disposition home or self-care (01) | LOC: MADLAB 19:21 | PROVIDERS: ATTEND Family Medicine | DX: G40.909 Epilepsy, unspecified, not intractable, without status epilepticus (principal) | CPT/HCPCS: 36415; 80185 ==

== ENCOUNTER 2021-01-20 22:57 | Emergency (ER) | payer OTHER ==
[2021-01-20 23:22] LABS: #Basophils 0.1 thou/uL (0.0-0.2); #Eosinphils 0.3 thou/uL (0.0-0.7); #Lymphocytes 1.8 thou/uL (1.20-3.40); #Monocytes 0.4 thou/uL (0.11-0.59); #Neutrophils 3.7 thou/uL (1.40-6.50); %Basophils 1.4 % (0.0-1.0); %Eosinophils 4.7 % (0.0-10.0); %Monocytes 6.9 % (0.0-10.0); %Neutrophils 58.9 % (42.0-75.0); Hemoglobin 13.1 g/dL (12.0-16.0); Mean Corpuscular HGB CONC 31.6 g/dL (32.0-36.0); Mean Corpuscular Hemoglobin 29.6 pg (27.0-31.0); Mean Corpuscular Volume 93.5 fL (78.0-98.0); Mean Platelet Volume 9.9 fL (7.4-10.4); Platelet Count 155 thou/uL (130-400); RBC Distribution Width 12.3 % (11.5-14.5); Red Blood Cell (RBC) Count 4.42 mill/uL (4.20-5.40); White Blood Cell (WBC) Count 6.3 thou/uL (4.8-10.8)
[2021-01-20 23:36] LABS: BHCG - Serum Negative (NEGATIVE); Pregs Control Background? CLEAR/WHITE (CLR/WHITE); Pregs Control Bar Appear? YES (CONTROL BAR)
[2021-01-20] MEDS ORDERED: levETIRAcetam 500 MG/100 ML PREMIX BAG ONE (23:41)
[2021-01-20 23:46] LABS: ALT (SGPT) 9 U/L (8-55); AST (SGOT) 14 U/L (5-34); Albumin 3.7 g/dL (3.5-5.0); Alkaline Phosphatase 83 U/L (40-110); Anion Gap 12 mmol/L (10-20); BUN (Urea Nitrogen) 20 mg/dL (7.0-18.7); Bilirubin, Total 0.2 mg/dL (0.2-1.2); Calc. Creatinine Clearance 0 mL/min (70-130); Calcium 8.4 mg/dL (7.8-10.44); Carbon Dioxide 27 mmol/L (22-29); Chloride 106 mmol/L (98-107); Glucose 104 mg/dL (70-105); Magnesium 2.1 mg/dL (1.6-2.6); Potassium 3.8 mmol/L (3.5-5.1); Protein, Total 6.7 g/dL (6.0-8.3); Sodium 141 mmol/L (136-145)
[2021-01-21] MEDS ORDERED: Acetaminophen 500 MG TAB ONE (00:31)
[2021-01-21 00:52] LABS: Bilirubin Negative (Negative); Blood, Urine Negative (Negative); Clarity Clear (Clear); Glucose, Urine (Dipstick) Negative (Negative); Ketone, Urine Negative (Negative); Leukocyte Negative (Negative); Nitrite Negative (Negative); Protein, Urine (Dipstick) Negative (Neg-Trace); Specific Gravity, Urine 1.025 (1.005-1.030); Urobilinogen 0.2 mg/dL (Less than 2); pH, Urine 5.5 (5.0-9.0)
[2021-01-21 01:00] LABS: Amphetamine Not Detected (NotDetected); Barbiturates Screen Not Detected (NotDetected); Benzodiazepine Screen Not Detected (NotDetected); Cocaine Metabolite Screen Not Detected (NotDetected); Medtox Control Line Valid? VALID (VALID); Methadone Not Detected (NotDetected); Methamphetamine Not Detected (NotDetected); Opiate Screen Not Detected (NotDetected); Oxycodone Screen Not Detected (NotDetected); Phencyclidine (PCP) Not Detected (NotDetected); THC/Cannabinoid Screen Not Detected (NotDetected); Tricyclic Screen Not Detected (NotDetected)
== END 2021-01-21 01:10 | disposition home or self-care (01) ==
LOC: MADERS 22:57
DX: R56.9 Unspecified convulsions (principal); R00.1 Bradycardia, unspecified; I10 Essential (primary) hypertension; J45.909 Unspecified asthma, uncomplicated; F17.210 Nicotine dependence, cigarettes, uncomplicated; E66.9 Obesity, unspecified; Z68.45 Body mass index [BMI] 70 or greater, adult
CPT/HCPCS: 80053; 80177; 80306; 81003; 83735; 84703; 85025; 93005; 96365; J1953

== ENCOUNTER 2021-01-27 19:03 | Emergency (ER) | payer OTHER ==
[2021-01-27] MEDS ORDERED: Lidocaine 1% w/Epinephrine 1:100K 20 ML VIAL ONE (21:00)
[2021-01-27] MEDS ORDERED: Bupivacaine PF 0.5% 30 ML VIAL ONE (21:00)
== END 2021-01-27 22:03 | disposition home or self-care (01) ==
LOC: MADERS 19:03
DX: K08.89 Other specified disorders of teeth and supporting structures (principal); J11.1 Influenza due to unidentified influenza virus with other respiratory manifestations; E66.9 Obesity, unspecified; J45.909 Unspecified asthma, uncomplicated; I10 Essential (primary) hypertension; F17.210 Nicotine dependence, cigarettes, uncomplicated; Z79.899 Other long term (current) drug therapy
CPT/HCPCS: 41899; 71045; 87804; S0020

== ENCOUNTER 2021-02-15 12:24 | Emergency (ER) | payer OTHER | END 2021-02-15 13:13 | disposition home or self-care (01) | LOC: MADERS 12:24 | DX: L02.811 Cutaneous abscess of head [any part, except face] (principal); J45.909 Unspecified asthma, uncomplicated; E66.9 Obesity, unspecified; F17.210 Nicotine dependence, cigarettes, uncomplicated | CPT/HCPCS: 99283 ==

== ENCOUNTER 2021-07-12 17:02 | Emergency (ER) | payer OTHER ==
[2021-07-12] MEDS ORDERED: Gentamicin 80 MG/2 ML VIAL ONE (17:26)
[2021-07-12] MEDS ORDERED: Neomycin-Polymyxin-Hc 7.5 ML BOT ONE (17:27)
[2021-07-12] MEDS ORDERED: Tobramycin Sulfate 0.3% Ophth Susp 5 ml Bottle ONE (17:27)
[2021-07-12] MEDS ORDERED: Neosporin Ophth Soln 10 ml Bottle ONE (17:28)
== END 2021-07-12 17:30 | disposition home or self-care (01) ==
LOC: MADERS 17:02
DX: B30.9 Viral conjunctivitis, unspecified (principal); J06.9 Acute upper respiratory infection, unspecified; F17.290 Nicotine dependence, other tobacco product, uncomplicated
CPT/HCPCS: 99283; J1580

== ENCOUNTER 2021-08-12 22:56 | Emergency (ER) | payer OTHER ==
[2021-08-12] MEDS ORDERED: Ketorolac Tromethamine 60 MG/2 ML VIAL ONE (23:40)
[2021-08-12] MEDS ORDERED: Methocarbamol 500 MG TAB PO SCH (23:45)
== END 2021-08-13 00:26 | disposition home or self-care (01) ==
LOC: MADERS 22:56
DX: S83.92XA Sprain of unspecified site of left knee, initial encounter (principal); S39.012A Strain of muscle, fascia and tendon of lower back, initial encounter; G40.909 Epilepsy, unspecified, not intractable, without status epilepticus; G47.30 Sleep apnea, unspecified; E66.9 Obesity, unspecified; I10 Essential (primary) hypertension; Z87.891 Personal history of nicotine dependence; X58.XXXA Exposure to other specified factors, initial encounter
CPT/HCPCS: 96372; 99283; J1885

== ENCOUNTER 2021-08-22 20:24 | Emergency (ER) | payer OTHER ==
[2021-08-22] MEDS ORDERED: Naproxen 500 MG TAB ONE (22:22)
== END 2021-08-23 00:21 | disposition home or self-care (01) ==
LOC: MADERS 20:24
DX: S83.92XA Sprain of unspecified site of left knee, initial encounter (principal); I10 Essential (primary) hypertension; J45.909 Unspecified asthma, uncomplicated; G47.30 Sleep apnea, unspecified; G40.409 Other generalized epilepsy and epileptic syndromes, not intractable, without status epilepticus; F17.290 Nicotine dependence, other tobacco product, uncomplicated; E66.9 Obesity, unspecified; X50.1XXA Overexertion from prolonged static or awkward postures, initial encounter; Z68.45 Body mass index [BMI] 70 or greater, adult; Z79.899 Other long term (current) drug therapy
CPT/HCPCS: 85379; 99283

== ENCOUNTER 2021-09-03 06:13 | Emergency (ER) | payer MEDICAID, OTHER ==
[2021-09-03] MEDS ORDERED: Diazepam 5 MG TAB ONE (07:17)
[2021-09-03] MEDS ORDERED: Albuterol 200 PUFF (6.7GM INHALER) ONE (07:18)
[2021-09-03] MEDS ORDERED: predniSONE 10 MG TAB ONE (07:18)
[2021-09-03] MEDS ORDERED: predniSONE 20 MG TAB ONE (07:18)
[2021-09-03] MEDS ORDERED: Doxycycline 100 MG CAP ONE (07:38)
== END 2021-09-03 07:40 | disposition home or self-care (01) ==
LOC: MADERS 06:13
DX: U07.1 COVID-19 (principal); J44.1 Chronic obstructive pulmonary disease with (acute) exacerbation; F17.290 Nicotine dependence, other tobacco product, uncomplicated; Z79.899 Other long term (current) drug therapy
CPT/HCPCS: 71045; J7512; U0003; U0005

== ENCOUNTER 2021-11-30 19:26 | Emergency (ER) | payer OTHER ==
[2021-11-30] MEDS ORDERED: predniSONE 20 MG TAB ONE (20:53)
[2021-11-30] MEDS ORDERED: predniSONE 10 MG TAB ONE (20:53)
[2021-11-30] MEDS ORDERED: Azithromycin 250 MG TAB ONE (20:53)
== END 2021-11-30 21:17 | disposition home or self-care (01) ==
LOC: MADERS 19:26
DX: J44.1 Chronic obstructive pulmonary disease with (acute) exacerbation (principal); G47.30 Sleep apnea, unspecified; E66.9 Obesity, unspecified; I10 Essential (primary) hypertension; G40.409 Other generalized epilepsy and epileptic syndromes, not intractable, without status epilepticus; F17.290 Nicotine dependence, other tobacco product, uncomplicated
CPT/HCPCS: 71046; 93005; J7512

== ENCOUNTER 2022-01-20 16:25 | Emergency (ER) | payer OTHER ==
[2022-01-20 17:24] LABS: #Eosinphils 0.3 thou/uL (0.0-0.7); #Lymphocytes 1.2 thou/uL (1.20-3.40); #Monocytes 0.4 thou/uL (0.11-0.59); #Neutrophils 4.4 thou/uL (1.40-6.50); %Basophils 0.7 % (0.0-1.0); %Eosinophils 4.1 % (0.0-10.0); %Lymphocytes 18.7 % (21.0-51.0); %Monocytes 5.8 % (0.0-10.0); %Neutrophils 70.7 % (42.0-75.0); Hemoglobin 12.9 g/dL (12.0-16.0); Mean Corpuscular HGB CONC 32.1 g/dL (32.0-36.0); Mean Corpuscular Volume 96.6 fl (78.0-98.0); Mean Platelet Volume 9.3 fL (7.4-10.4); Platelet Count 163 10x3/uL (130-400); RBC Distribution Width 12.1 % (11.5-14.5); Red Blood Cell (RBC) Count 4.17 mill/uL (4.20-5.40); White Blood Cell (WBC) Count 6.2 10x3/uL (4.8-10.8)
[2022-01-20 17:27] LABS: SARS-CoV-2 NAA Rapid Test Not Detected (NotDetected)
[2022-01-20 17:38] LABS: BHCG - Serum Negative (NEGATIVE); Pregs Control Background? CLEAR/WHITE (CLR/WHITE); Pregs Control Bar Appear? YES (CONTROL BAR)
[2022-01-20 17:41] LABS: ALT (SGPT) 24 U/L (8-55); AST (SGOT) 19 U/L (5-34); Albumin 3.8 g/dL (3.5-5.0); Alkaline Phosphatase 134 U/L (40-110); Anion Gap 17 mmol/L (10-20); BUN (Urea Nitrogen) 16 mg/dL (7.0-18.7); Bilirubin, Total Less than 0.2 mg/dL (0.2-1.2); Calc. Creatinine Clearance 0 mL/min (70-130); Calcium 8.7 mg/dL (7.8-10.44); Carbon Dioxide 25 mmol/L (22-29); Chloride 105 mmol/L (98-107); Estimated GFR 100; Globulin 3.1 g/dL (2.4-3.5); Glucose 90 mg/dL (70-105); Magnesium 2.1 mg/dL (1.6-2.6); Protein, Total 6.9 g/dL (6.0-8.3); Sodium 143 mmol/L (136-145)
[2022-01-20 17:42] LABS: Acetaminophen Less than 10.0 mcg/mL (10.0-30.0); Alcohol Less than 10 mg/dL (Less than 10); Salicylate Less than 8.0 mg/dL (15.0-30.0)
[2022-01-20 17:49] LABS: Base Excess-Venous 2.7 mmol/L (-2.0 to 3.0); Bicarbonate (HCO3v) 29.2 mmol/L (22.0-28.0); CO2 Tension (PvCO2) 50.9 mmHg (42.0-51.0); Calcium, Ionized 1.11 mmol/L (1.15-1.33); Chloride 106 mmol/L (98-107); Hemoglobin - Calc 15.2 g/dL (12.0-16.0); Potassium 3.8 mmol/L (3.5-5.1); Sodium 146 mmol/L (138-145); T. Carbon Dioxide 30.8 mmol/L (22.0-28.0)
[2022-01-20 18:07] LABS: Amphetamine Not Detected (NotDetected); Cocaine Metabolite Screen Not Detected (NotDetected); Methamphetamine Not Detected (NotDetected); Opiate Screen Not Detected (NotDetected); Phencyclidine (PCP) Not Detected (NotDetected); THC/Cannabinoid Screen Not Detected (NotDetected)
[2022-01-20 18:08] LABS: Barbiturates Screen Detected (NotDetected); Benzodiazepine Screen Detected (NotDetected); Medtox Control Line Valid? VALID (VALID); Methadone Not Detected (NotDetected); Oxycodone Screen Not Detected (NotDetected); Tricyclic Screen Detected (NotDetected)
[2022-01-20] MEDS ORDERED: ALPRAZolam 0.5 MG TAB ONE (18:33)
[2022-01-20] MEDS ORDERED: Sodium Chloride 0.9% 1,000 ML ONE (18:48)
[2022-01-20 20:25] LABS: Troponin I Less than 0.010 ng/mL (< 0.028)
== END 2022-01-20 20:54 | disposition home or self-care (01) ==
LOC: MADERS 16:25
DX: R07.89 Other chest pain (principal); T42.3X1A Poisoning by barbiturates, accidental (unintentional), initial encounter; I10 Essential (primary) hypertension; E11.9 Type 2 diabetes mellitus without complications; E78.00 Pure hypercholesterolemia, unspecified; F17.290 Nicotine dependence, other tobacco product, uncomplicated
CPT/HCPCS: 36415; 71045; 80053; 80306; 80307; 82330; 82803; 83735; 83880; 84484; 84703; 85025; 85379; 93005; J7050; J7620; U0002

== ENCOUNTER 2022-01-30 22:26 | Emergency (ER) | payer MEDICAID, OTHER ==
[2022-01-30] MEDS ORDERED: traMADol HCl 50 MG TAB ONE (22:57)
[2022-01-30] MEDS ORDERED: Clindamycin/D5W 300 MG/50 ML BAG ONE (22:57)
[2022-01-30] MEDS ORDERED: Clindamycin 150 MG CAP ONE (22:58)
== END 2022-01-30 23:13 | disposition home or self-care (01) ==
LOC: MADERS 22:26
DX: K04.7 Periapical abscess without sinus (principal); J45.909 Unspecified asthma, uncomplicated; I10 Essential (primary) hypertension; E66.9 Obesity, unspecified; F17.290 Nicotine dependence, other tobacco product, uncomplicated
CPT/HCPCS: 99282; J3490

== ENCOUNTER 2022-02-18 10:42 | Emergency (ER) | payer OTHER ==
[2022-02-18] MEDS ORDERED: Ketorolac Tromethamine 60 MG/2 ML VIAL ONE (11:06)
[2022-02-18] MEDS ORDERED: Dexamethasone 10 MG/ML VIAL ONE (11:06)
== END 2022-02-18 12:00 | disposition home or self-care (01) ==
LOC: MADERS 10:42
DX: K08.89 Other specified disorders of teeth and supporting structures (principal); I10 Essential (primary) hypertension; F17.290 Nicotine dependence, other tobacco product, uncomplicated; Z79.899 Other long term (current) drug therapy
CPT/HCPCS: 87804; 96372; 99283; J1100; J1885

== ENCOUNTER 2022-02-21 17:21 | Emergency (ER) | payer OTHER ==
[2022-02-21] MEDS ORDERED: Ondansetron ODT 4 MG TAB ONE (18:02)
== END 2022-02-21 18:58 | disposition home or self-care (01) ==
LOC: MADERS 17:21
DX: R11.2 Nausea with vomiting, unspecified (principal); M79.10 Myalgia, unspecified site; I10 Essential (primary) hypertension; F17.290 Nicotine dependence, other tobacco product, uncomplicated; Z79.899 Other long term (current) drug therapy
CPT/HCPCS: 87081; 87430; 87804; 99284; Q0162

== ENCOUNTER 2022-04-14 17:02 | Emergency (ER) | payer MEDICAID, OTHER, SELFPAY ==
[2022-04-14] MEDS ORDERED: Sodium Chloride 0.9% 1,000 ML ONE (17:15)
[2022-04-14 17:35] LABS: #Basophils 0.1 thou/uL (0.0-0.2); #Eosinphils 0.2 thou/uL (0.0-0.7); #Lymphocytes 1.3 thou/uL (1.20-3.40); #Monocytes 0.4 thou/uL (0.11-0.59); %Basophils 1.2 % (0.0-1.0); %Eosinophils 3.9 % (0.0-10.0); %Lymphocytes 21.5 % (21.0-51.0); %Monocytes 6.3 % (0.0-10.0); %Neutrophils 67.2 % (42.0-75.0); Hemoglobin 12.1 g/dL (12.0-16.0); Mean Corpuscular HGB CONC 32.4 g/dL (32.0-36.0); Mean Corpuscular Hemoglobin 30.2 pg (27.0-31.0); Mean Corpuscular Volume 93.1 fl (78.0-98.0); Platelet Count 173 10x3/uL (130-400); RBC Distribution Width 12.2 % (11.5-14.5); Red Blood Cell (RBC) Count 4.03 mill/uL (4.20-5.40); White Blood Cell (WBC) Count 5.9 10x3/uL (4.8-10.8)
[2022-04-14 17:53] LABS: ALT (SGPT) 11 U/L (8-55); AST (SGOT) 12 U/L (5-34); Albumin 3.7 g/dL (3.5-5.0); Alkaline Phosphatase 81 U/L (40-110); Anion Gap 12 mmol/L (10-20); BUN (Urea Nitrogen) 11 mg/dL (7.0-18.7); Bilirubin, Total Less than 0.2 mg/dL (0.2-1.2); Calc. Creatinine Clearance 0 mL/min (70-130); Calcium 8.6 mg/dL (7.8-10.44); Carbon Dioxide 29 mmol/L (22-29); Chloride 104 mmol/L (98-107); Estimated GFR 111; Globulin 3.1 g/dL (2.4-3.5); Glucose 87 mg/dL (70-105); Lipase 19 U/L (8-78); Magnesium 2.2 mg/dL (1.6-2.6); Potassium 4.1 mmol/L (3.5-5.1); Protein, Total 6.8 g/dL (6.0-8.3); Sodium 141 mmol/L (136-145)
[2022-04-14 18:17] LABS: Bilirubin Negative (Negative); Blood, Urine Negative (Negative); Clarity Clear (Clear); Glucose, Urine (Dipstick) Negative (Negative); Ketone, Urine Negative (Negative); Leukocyte Negative (Negative); Nitrite Negative (Negative); Protein, Urine (Dipstick) Negative (Neg-Trace); Urobilinogen 0.2 mg/dL (Less than 2)
[2022-04-14 18:18] LABS: Specific Gravity, Urine 1.025 (1.002-1.036)
[2022-04-14 18:20] LABS: Pregnancy Test - Urine (BHCG) Negative (Negative); Pregu Control Background? CLEAR/WHITE (CLR/WHITE); Pregu Control Bar Appear? YES (CONTROL BAR); Specific Gravity 1.025 (1.002-1.036)
[2022-04-14] MEDS ORDERED: Lorazepam 2 MG/ML VIAL ONE (19:06)
== END 2022-04-14 20:15 | disposition home or self-care (01) ==
LOC: MADERS 17:02
DX: J06.9 Acute upper respiratory infection, unspecified (principal); F41.9 Anxiety disorder, unspecified; I10 Essential (primary) hypertension; F17.290 Nicotine dependence, other tobacco product, uncomplicated
CPT/HCPCS: 36415; 71045; 80053; 81003; 81025; 83690; 83735; 84484; 85025; 87804; 87807; 93005; 96361; 96374; J2060; J7050